=== PATIENT | female | born 1965 | race Caucasian/White ===

== ENCOUNTER → 2023-10-27 13:22 | Outpatient (REF) | payer OTHER, SELFPAY | LOC: WDC 13:22 | PROVIDERS: ATTENDING PHYSICIAN Obstetrics & Gynecology; FAMILY PHYSICIAN Emergency Medicine | DX: Z12.31 Encounter for screening mammogram for malignant neoplasm of breast (principal) | CPT/HCPCS: 77063; 77067 ==

== ENCOUNTER → 2025-03-07 13:49 | Outpatient (REF) | payer OTHER, SELFPAY | LOC: WDC 13:49 | PROVIDERS: ATTENDING PHYSICIAN Emergency Medicine | DX: Z12.31 Encounter for screening mammogram for malignant neoplasm of breast (principal) | CPT/HCPCS: 77063; 77067 ==

== ENCOUNTER → 2025-03-21 09:41 | Outpatient (REF) | payer OTHER, SELFPAY | LOC: WDC 09:41 | PROVIDERS: ATTENDING PHYSICIAN Emergency Medicine | DX: R92.8 Other abnormal and inconclusive findings on diagnostic imaging of breast (principal) | CPT/HCPCS: 76642 ==

== ENCOUNTER → 2025-04-04 09:21 | Outpatient (REF) | payer OTHER, SELFPAY | LOC: WDC 09:21 | PROVIDERS: ATTENDING PHYSICIAN Emergency Medicine | DX: N63.12 Unspecified lump in the right breast, upper inner quadrant (principal); N63.31 Unspecified lump in axillary tail of the right breast | CPT/HCPCS: 19083; 19084; 88305; A4648 ==

== ENCOUNTER → 2025-04-18 14:09 | Outpatient (REF) | payer OTHER, SELFPAY | LOC: MRI 3T 14:09 | PROVIDERS: ATTENDING PHYSICIAN Surgery; FAMILY PHYSICIAN Emergency Medicine | DX: C50.411 Malignant neoplasm of upper-outer quadrant of right female breast (principal); Z17.0 Estrogen receptor positive status [ER+] | CPT/HCPCS: 77049; A9585 ==

== ENCOUNTER → 2025-05-07 09:41 | Outpatient (REF) | payer OTHER, SELFPAY | LOC: WDC 09:41 | PROVIDERS: ATTENDING PHYSICIAN Surgery | DX: C50.411 Malignant neoplasm of upper-outer quadrant of right female breast (principal) | CPT/HCPCS: 19285; 38792; 76942; A4648; A9541 ==

== ENCOUNTER 2025-05-08 06:26 | Day surgery (SDC) | payer OTHER, SELFPAY ==
[2025-05-02 14:07] VITALS: BMI 29.3
[2025-05-02 14:38] LABS: Hematocrit 43.0 % (37.0-47.0); Hemoglobin 13.4 g/dL (12.0-16.0); Mean Corp Hgb Conc. 31.2 g/dL (33.0-37.0); Mean Corpuscular Volume 81.4 fL (81.0-99.0); Platelet Count 327 10^3/uL (130-400); Red Cell Dist. Width 14.9 % (11.5-14.5)
[2025-05-02 15:14] LABS: ALT (SGPT) 16 U/L (0-35); AST (SGOT) 20 U/L (14-36); Albumin 4.7 g/dl (3.5-5.0); Alkaline Phosphatase 93 U/L (38-126); Blood Urea Nitrogen 15 mg/dl (7-17); Calcium 9.5 mg/dl (8.4-10.2); Carbon Dioxide 29 mmol/L (22-30); Chloride 106 mmol/L (98-107); Estimated Creatinine Clearance 80 ml/min; Glucose 88 mg/dl (70-99); Potassium 4.9 mmol/L (3.5-5.1); Sodium 139 mmol/L (135-145); Total Protein 8.0 g/dl (6.3-8.2); eGFR > 60.00
[2025-05-02 15:20] LABS: Prealbumin (Transthyretin) 27.4 mg/dl (17.6-36.0)
[2025-05-02 15:32] LABS: Vitamin D, 25-OH*** 40.3 ng/mL (30-80)
[2025-05-08 12:41] VITALS: BP 130/94; BMI 29.3
[2025-05-08] MEDS: TYLENOL 1000 MG PO (12:49)
--- NOTE | 2025-05-08 13:01 | W.SUR.PREOP ---
Pre-Operative Surgical Note
-
I have examined this patient prior to the performance of the scheduled procedure.
The patient's condition is unchanged from the time of the current History and
Physical and the patient is able to undergo the scheduled procedure.
[2025-05-08] MEDS: LOVENOX 40 MG SC (13:07)
[2025-05-08] MEDS: VANCOCIN 200 IV (13:19)
[2025-05-08] MEDS: NORMOSOL-R/PLASMALYTE-A 1000 IV (13:19)
--- NOTE | 2025-05-08 15:13 | W.IMMPOSTOP ---
Surgical Immed Post Op Note
-
Primary Surgeon: Kenna
Assisting Surgeon: None
Pre-op Diagnosis: Right breast carcinoma
Post-op Diagnosis: Same
Procedure Performed: right localized lumpectomy, sentinel lymph node mapping and biopsy, oncoplastic mastoplasty
Anesthesia Type: TIVA
Specimen / Cultures: Elverta nodes, lumpectomy and margins
Estimated Blood Loss: 10cc
Complications: None
Operative Findings: clip, reflector and mass in speciment
--- NOTE | 2025-05-08 15:15 | OR.RPT ---
Operative Report
Operative Report
Procedure: 05/08/2025
Surgeon: Kenna
Preoperative diagnosis: Right breast carcinoma
Postoperative diagnosis: Right breast carcinoma
Procedure: Right localized lumpectomy, sentinel lymph node mapping and biopsy, and closure with oncoplastic mastoplasty
The patient is a 60-year-old female who presented with image detected right breast carcinoma and who presents for breast conservation surgery. On the day prior to the procedure she presented to the [facility] where a Greta reflector was
placed at the tumor site and technetium radiotracer was injected into the breast parenchyma. On the day of the procedure she presented to same-day surgical services unit. She verified site and procedure. She was prepped and DVT and antibiotic
prophylaxis were provided.
She was taken to the operating room and in the supine position intravenous sedation was delivered. The right axilla and breast were prepped and draped in the usual sterile fashion. All tissues were anesthetized with 1% lidocaine plain. Attention
was first turned to the axilla where a curvilinear incision was made inferior to the hairline overlying the area of highest external gamma count. Dissection was carried through clavipectoral fascia using the cautery and using the neoprobe gamma
probe to sentinel node packets were encountered and excised. Feeding vessels to the nodes were controlled with 3-0 silk tie. After the removal there was a greater than fourfold reduction of background count. Hemostasis was carefully maintained
with 3-0 silk ties. Marcaine 0.5% plain was instilled into all tissues and a portion of Surgicel was placed in the wound bed. This incision was closed using simple interrupted 3-0 plain and deep intermediate and subcutaneous tissue and skin was
closed with a running subcuticular 4 Monocryl. There was a skin tag that was present and would have interfered with closure of the incision therefore this was excised and sent under separate cover.
Then the lumpectomy was approached by making a curvilinear incision overlying the area where the Greta signal sounded out. Skin flaps were elevated and a wide resection using the cautery was performed. Time out of body was noted and the specimen
was oriented for the pathologist. Specimen radiography confirmed the presence of mass clip and reflector within it. Additional margins were harvested for permanent analysis from the posterior, medial, superior, lateral, inferior, and anterior
dimensions. These were oriented and sent under separate cover as well. This left a resulting defect of 6 x 5 cm therefore in an oncoplastic fashion the oncoplastic plane was elevated using the cautery. A separate parenchymal incision was made to
move and advancement flap into the defect. First, hemoclips were placed in the resection cavity and Marcaine 0.5% plain was instilled into all tissue. This wound was closed in the same fashion as the axillary incision and in addition some simple
interrupted 4-0 Biosyn's were placed for extra support externally. Surgical glue and sterile compressive dressings were applied. All sponge needle and instrument counts were correct and the patient was transferred to same-day surgical services in
stable condition
([id number])
[2025-05-08 15:16] VITALS: BP 118/64
--- NOTE | 2025-05-08 15:25 | OR.RPT ---
Operative Report
Operative Report
Date of service: 05/08/2025
Surgeon: Kenna
Preoperative diagnosis: Right breast carcinoma
Postoperative diagnosis: Right breast carcinoma
Procedure: Right localized lumpectomy, sentinel lymph node mapping and biopsy, and oncoplastic mastoplasty
The patient is a 60-year-old female who was diagnosed with image detected right breast carcinoma and presents for breast conservation surgery. On the day prior to the procedure she presented to the [place] [facility] where a Greta reflector
was placed at the tumor site. Additionally, technetium radiotracer was injected into the breast parenchyma. On the day of surgery the patient presented to the same-day surgical services unit where she was identified, verified site and procedure,
and was prepped. DVT and antibiotic prophylaxis were provided and she was taken to the operating room.
In the supine position intravenous sedation was delivered and the right breast and axilla were prepped and draped in usual sterile fashion. An appropriate timeout was performed by all staff members. All tissues were anesthetized with 1% lidocaine
plain and attention was first turned to the axilla where a curvilinear incision was made inferior to the hairline overlying the area of highest external gamma count. Dissection was carried through clavipectoral fascia using the cautery. Using the
gamma probe to sentinel node packets were encountered and excised by controlling feeding vessels with 3-0 silk tie. After their removal, there was a greater than fourfold reduction of background count. Hemostasis was maintained with the cautery or
additional 3-0 silk suture. Marcaine 0.5% plain was instilled and wound was closed using simple interrupted 3-0 plain and deep intermediate subcutaneous tissue. Skin was closed with a running subcuticular 4-0 Biosyn. There was a skin tag would
have interrupted with closure of this incision therefore that was excised sharply and sent under separate cover.
Attention was then turned to the lumpectomy where a curvilinear incision was made overlying the area of highest external Greta signal. The oncoplastic plane was entered and elevated with the cautery. A wide lumpectomy was performed and time out of
body was noted. The specimen was oriented for the pathologist and specimen radiography confirmed the presence of the mass clip and reflector within it. Additional margins were harvested from the posterior, medial, superior, lateral, inferior, and
anterior dimensions and sent under separate cover. This left a resultant defect of 6 x 5 cm therefore in an oncoplastic fashion a separate parenchymal incision was made to function as an advancement flap internally. Hemoclips were placed in the
resection cavity and Marcaine 0.5% plain was instilled. The advancement flap was anchored using simple interrupted 3-0 plain and the wound was closed in the same manner as the axillary incision. Additionally, external simple 4-0 Biosyn sutures
were placed for extra support. Sterile glue and sterile compressive dressings were applied. The skin tag site had Steri-Strips placed over it. All sponge needle and instrument counts were correct and the patient was transferred to the recovery
room in stable condition.
([id number])
Wartrace Node Bx Breast Cancer
Wartrace Node Bx Breast Cancer
Operation performed with curative intent: Yes
Tracer(s) to ID Wartrace Nodes in Non-Neoadjuvant setting: Radioactive Tracer
Tracer(s) to ID Sentinal Nodes in the Neoadjuvant Setting: N/A
All nodes at end of dye-filled Lymphatic Channel removed: N/A
All Significantly Radioactive Nodes were removed: Yes
All Palpably Suspicious Nodes were Removed: Yes
Bx Proven Pos Nodes Marked Prior to Chemo ID'd & Removed: N/A
[2025-05-08 15:30] VITALS: BP 132/84
[2025-05-08 15:45] VITALS: BP 129/66
[2025-05-08 15:55] VITALS: BP 132/78
== END 2025-05-08 16:10 | disposition home or self-care (01) ==
LOC: SDS 06:26
PROVIDERS: ATTENDING PHYSICIAN Surgery; FAMILY PHYSICIAN Emergency Medicine
DX: C50.411 Malignant neoplasm of upper-outer quadrant of right female breast (principal)
CPT/HCPCS: 38525; 19301; 11200; 38900; 14001; 36415; 76098; 80053; 82306; 84134; 85027; 88304; 88305; 88307; 88341; 88342; 93005